=== PATIENT | female | born 1970 | race Caucasian/White ===

== ENCOUNTER 2021-10-03 06:20 | Day surgery (SDC) | payer OTHER ==
[~2021-10-03] VITALS: Ht 152.4 cm; Wt 78.1 kg
[~2021-10-03 06:20] MED LIST: SODIUM CHLORIDE 0.9% 1,000 ML IV ONE; SODIUM CHLORIDE 0.9% 1,000 ML ONE
[2021-10-03 06:58] LABS: COVID AG,FIA SOURCE NASAL SWAB
[2021-10-03] MEDS ORDERED: OMEP10 PO (07:50)
[2021-10-03] MEDS ORDERED: PROPOFOL 1% 20 ML VIAL IVP ONE (12:00)
[2021-10-03] MEDS ORDERED: LIDOCAINE/PF 2% 5 ML VIAL IM ONE (12:00)
== END 2021-10-03 10:25 | disposition home or self-care (01) ==
LOC: SURGERY 06:20
PROVIDERS: ATTEND Internal Medicine Gastroenterology
DX: Z12.11 Encounter for screening for malignant neoplasm of colon (principal); K20.90 Esophagitis, unspecified without bleeding; K44.9 Diaphragmatic hernia without obstruction or gangrene; K29.50 Unspecified chronic gastritis without bleeding; K64.0 First degree hemorrhoids; Z79.899 Other long term (current) drug therapy; Z98.890 Other specified postprocedural states; D64.9 Anemia, unspecified; K21.9 Gastro-esophageal reflux disease without esophagitis
CPT/HCPCS: 45378; 43239; 84703; 87426; 88305; C9803; J2704; J3490; J7030

== ENCOUNTER 2021-12-10 07:34 | Day surgery (SDC) | payer OTHER ==
[~2021-12-10] VITALS: Ht 152.4 cm; Wt 78.2 kg
[~2021-12-10 07:34] MED LIST changes: +MAG30ORA11 PO; +OMEP10 PO
[2021-12-10 08:05] LABS: COVID AG,FIA SOURCE NASOPHARYNGEAL
[2021-12-10] MEDS ORDERED: PROPOFOL 1% 20 ML VIAL IVP ONE (12:00)
== END 2021-12-10 11:35 | disposition home or self-care (01) ==
LOC: SURGERY 07:34
PROVIDERS: ATTEND Internal Medicine Gastroenterology
DX: K20.90 Esophagitis, unspecified without bleeding (principal); K44.9 Diaphragmatic hernia without obstruction or gangrene; D64.9 Anemia, unspecified; K21.9 Gastro-esophageal reflux disease without esophagitis; K29.70 Gastritis, unspecified, without bleeding; Z98.890 Other specified postprocedural states; Z79.899 Other long term (current) drug therapy; Z98.84 Bariatric surgery status; Z80.0 Family history of malignant neoplasm of digestive organs
CPT/HCPCS: 43239; 87426; 88305; 88312; 88313; C1769; J2704; J7030; C9803

== ENCOUNTER 2022-02-11 11:30 | Day surgery (SDC) | payer OTHER ==
[~2022-02-11] VITALS: Ht 152.4 cm; Wt 79.4 kg
[~2022-02-11 11:30] MED LIST changes: -SODIUM CHLORIDE 0.9% 1,000 ML ONE
[2022-02-11] MEDS ORDERED: PROPOFOL 1% 20 ML VIAL IVP ONE (11:31)
[2022-02-11 11:55] LABS: COVID AG,FIA SOURCE NASAL SWAB
== END 2022-02-11 15:35 | disposition home or self-care (01) ==
LOC: SURGERY 11:30
PROVIDERS: ATTEND Internal Medicine Gastroenterology
DX: K21.00 Gastro-esophageal reflux disease with esophagitis, without bleeding (principal); K44.9 Diaphragmatic hernia without obstruction or gangrene; K29.50 Unspecified chronic gastritis without bleeding; Z79.899 Other long term (current) drug therapy; Z98.890 Other specified postprocedural states; Z20.822 Contact with and (suspected) exposure to COVID-19; G89.29 Other chronic pain
CPT/HCPCS: 43239; 87426; 88305; 88312; 88313; C1769; J2704; C9803